=== PATIENT | female | born 1960 | race Hispanic/Latino ===

== ENCOUNTER → 2019-09-30 | Day surgery (SDC) | payer BC, OTHER ==
[~2019-09-30] MED LIST: FENTANYL CITRATE/PF 100MCG/2 ML INJ ONE; HYOSCYAMINE 0.125 MG TAB ONE; LEXAPRO10 MG PO; LORAZEPAM0.5 MG PO; METOPROLOL SUCC50 MG PO; MIDAZOLAM HCL 2 MG/2 ML VIAL ONE; OMEPRAZOLE40 MG PO; SYNTHROID112 MCG PO; SYNTHROID125 MCG PO
[2019-09-30 19:20] VITALS: BP 104/58
== END | disposition home or self-care (01) ==
LOC: OR 13:35
PROVIDERS: ATTEND Internal Medicine Gastroenterology
DX: Z12.11 Encounter for screening for malignant neoplasm of colon (principal); D12.0 Benign neoplasm of cecum; D12.4 Benign neoplasm of descending colon; K57.30 Diverticulosis of large intestine without perforation or abscess without bleeding; K64.8 Other hemorrhoids; K62.5 Hemorrhage of anus and rectum; R05 Cough; F41.9 Anxiety disorder, unspecified; K44.9 Diaphragmatic hernia without obstruction or gangrene; N39.0 Urinary tract infection, site not specified; Z01.810 Encounter for preprocedural cardiovascular examination; Z01.812 Encounter for preprocedural laboratory examination; Z11.59 Encounter for screening for other viral diseases; Z85.850 Personal history of malignant neoplasm of thyroid; Z68.42 Body mass index [BMI] 45.0-49.9, adult
CPT/HCPCS: 45384; 45385; 87635; 93005; J2250; J3010